=== PATIENT | female | born 1950 | race Caucasian/White ===

== ENCOUNTER 2018-12-12 08:13 | Emergency (ER) | payer MEDICARE ==
[~2018-12-12] VITALS: Ht 165.1 cm; Wt 65.8 kg
--- OUTSIDE RECORDS SUMMARY | 2018-12-12 08:16 | XMS REPORT | Summary of Care ---
Author Organization Unknown Address Unknown Phone Unavailable Encounter Dates Location Diagnoses Discharge Providers Disposition 01/12/2014 [facility] Outpatient Imaging - Home Alma Espinoza [facility] 01/12/[address] Reason for Visit 790.5 - ABN SERUM ENZY Problem List No data available for this section Allergies, Adverse Reactions, Alerts No data available for this section Medications No data available for this section Medications Administered During Your Visit No data available for this section Immunizations No data available for this section
--- OUTSIDE RECORDS SUMMARY | 2018-12-12 08:16 | XMS REPORT | Summary of Care ---
Author Organization Unknown Address Unknown Phone Unavailable Encounter Dates Location Diagnoses Discharge Providers Disposition 01/06/2014 [facility] Outpatient Imaging - Home Alma Espinoza [facility] 01/06/[address] Reason for Visit 793.19 - OT NONSP AB FND Problem List No data available for this section Allergies, Adverse Reactions, Alerts No data available for this section Medications No data available for this section Medications Administered During Your Visit No data available for this section Immunizations No data available for this section
--- OUTSIDE RECORDS SUMMARY | 2018-12-12 08:16 | XMS REPORT | Summary of Care ---
Author Organization Unknown Address Unknown Phone Unavailable Encounter HQ Anar_avi([facility]) [id number] Date(s): 12/12/14 - 12/12/14 [facility] Outpatient Imaging - [address] [address] [place] Discharge Disposition: Home Physician Attending: Fabiana Bruner MD Reason for Visit 793.11 - SOLITARY PULMON Problem List No data available for this section Allergies, Adverse Reactions, Alerts No data available for this section Medications No data available for this section Medications Administered During Your Visit No data available for this section Immunizations No data available for this section
--- OUTSIDE RECORDS SUMMARY | 2018-12-12 08:16 | XMS REPORT | Continuity of Care Document ---
Author Author [facility] Address Unknown Phone Unavailable Problems Problem Status Onset Date Classification Date Reported Comments Source 241.0 - NONTOX UNINODUL Active 01/11/2015 [facility] [place] [facility] 793.11 - SOLITARY PULMON Active 12/07/2014 [facility] [place] 240.9 - GOITER NOS Active 08/25/2012 [facility] [place] Medications Medication Details Route Status Patient Instructions Ordering Provider Order Date Source Allergies, Adverse Reactions, Alerts Substance Category Reaction Severity Reaction type Status Date Reported Comments Source Immunizations Immunization Date Given Site Status Last Updated Comments Source Results Order Name Results Value Reference Range Date Interpretation Comments Source Chest wo contrast CT Chest wo contrast CT CHEST CT CLINICAL HISTORY: Solitary pulmonary nodule. TECHNIQUE: A noncontrast volumetric CT was acquired and displayed in multiplanar reconstructions. DLP is 574 mGy-cm. COMPARISON IMAGIN01/06/2014 CT. FINDINGS: Mediastinum: The nodule in the lower pole of the left lobe of thyroid now appears slightly larger, measuring 2.4 cm in greatest dimension (series 2, image 4). Note that the interval change may be related to differences in CT technique than true interval growth. Visualized lymph nodes are within normal limits for CT size criteria. There is no acute aortic abnormality, pericardial effusion, or mediastinal mass. Upper Abdomen: The low-density lesions in the liver seen on the prior exam are stable when accounting for differences in technique. Lungs: Pleural surfaces are unremarkable. The 4 mm subpleural noncalcified nodule in the RML (series 3, image 35) is stable. No suspicious pulmonary consolidation, interstitial thickening, or other significant nodularity is identified. Bones: Unremarkable. IMPRESSION: 1. Stable punctate right lung nodule. Followup imaging is no longer necessary. 2. Stable liver lesions. 3. Possible slight interval increase in the nodule in the left lobe of the thyroid. Note that this has previously been imaged with sonography (10/27/2012), and FNA was recommended at that time. Repeat sonography should be considered if this patient has not undergone tissue sampling. 12/12/2014 - - Read by: Kentrell Scott MD Dictated Date/time: 12/12/14 15:43 Electronically Signed by: Kentrell Scott MD 12/12/14 15:56 FINAL REPORT JOHANNA Reynolds Abdomen complete US Abdomen complete US ABDOMEN ULTRASOUND CLINICAL HISTORY: Abnormal LFTs COMPARISON IMAGING: Correlation is made with recent CT abdomen of 08/11/2013 FINDINGS: Liver: Measures 14.5 cm in length (normal: 13-17 cm). Echogenicity is unremarkable. 7 mm hyperechoic focus is seen in the right hepatic lobe, likely corresponding to a known hemangioma. A 4 mm punctate echogenic focus in the anterior right hepatic lobe is indeterminate, may also reflect a small hemangioma. Larger hemangiomas visualized on prior CT are not as well seen on this exam. The patient is status post partial left hepatectomy. No suspicious lesion or surface nodularity. Portal vein is patent with hepatopedal flow. Biliary: The gallbladder is surgically absent. There is mild central biliary prominence measuring up to 1.1 cm. This is not significantly changed when compared with the recent CT. No evidence of intraluminal stone. Pancreas: No focal lesion. However, the tail is obscured by overlying bowel gas and unable to be evaluated. Spleen: Measures 8.7 cm in maximal dimension (normal < 13 cm). Punctate calcified granulomas are seen, unchanged compared to prior CT. No focal lesion is seen. Kidneys: Right and left measure 10.6 and 10.2 cm in length, respectively (normal: 9-12 cm). No hydronephrosis, suspicious renal mass, or large shadowing stone. Vascular: Visualized portions of the IVC are patent. No obvious aneurysmal dilatation of the aorta. IMPRESSION: 1. Punctate hyperechoic focus in the right hepatic lobe measuring 7 mm, likely corresponds to known hemangioma. 2. Indeterminate 4 mm echogenic focus in the anterior right hepatic lobe, may also reflect a punctate hemangioma. Alternatively, this may reflect a calcified granuloma which was not well visualized on the previous CT. 3. Mild prominence of the common bile duct may be related to previous cholecystectomy. 4. Stable granulomatous disease of the spleen. 01/12/2014 - - Read by: Lynette Nava Dictated Date/time: 01/12/14 13:17 Electronically Signed by: Lynette Nava MD 01/12/14 13:29 FINAL REPORT EVANGELINA Reynolds Chest w/wo contrast CT Chest w/wo contrast CT CHEST CT CLINICAL HISTORY: Abnormal lung [place] findings. TECHNIQUE: Pre- and post-IV contrast volumetric CT displayed in multiplanar reconstructions. DLP is 767 mGy-cm. COMPARISON IMAGIN08/11/2013 abdomen/pelvis CT and 08/27/2012 sonography. FINDINGS: Mediastinum: A 2.2 cm nodule in the lower pole of the left lobe of thyroid is grossly unchanged since 2011 when allowing for differences in imaging technique. Visualized lymph nodes are within normal limits for CT size criteria. No acute aortic abnormality, pericardial effusion, or mediastinal mass. Upper Abdomen: Surgical changes along the left lobe of the liver are again noted. The low-density lesions in the liver (seen on prior imaging) are stable. Note that they have been previously shown to represent hemangiomas. Remaining visualized segments of the abdominal organs are unremarkable. Lungs: Pleural surfaces are unremarkable. A 4 mm subpleural noncalcified nodule is seen in the RML (series 5, image 35). No suspicious pulmonary consolidation, interstitial thickening, or other significant nodularity is identified. Bones: No suspicious bone lesion is seen. IMPRESSION: 1. Punctate indeterminate right lung nodule. Repeat chest CT in one year is recommended if this patient has risk factors for malignancy. 2. Stable thyroid and liver lesions. 01/06/2014 - - Read by: Kentrell Scott Dictated Date/time: 01/08/14 11:46 Electronically Signed by: Kentrell Scott MD 01/08/14 11:55 FINAL REPORT EVANGELINA Dela Cruza Abdomen w/wo contrast CT Abdomen w/wo contrast CT Exam: CT Scan of the abdomen with and without contrast Reason for Exam: Liver hemangioma Comparison Exam: MRI abdomen 03/05/2004 Technique: Multiple axial images were obtained of the abdomen. 3.75 mm slices were acquired before and after injection of 100 cc Omnipaque 300 IV. 50 cc Omnipaque 300 was also given as oral contrast. Reformatted sagittal and coronal images were obtained. Creatinine is 1.0. Total exam MXN=1384 mGy-cm. Discussion: Visualized portions of the lung bases are clear. The patient states that she is status post partial hepatectomy approximately 12 years ago. Postsurgical changes are seen within the left lobe of the liver. Stable appearing hemangiomas are seen within the liver (series 3, image 112, series 3, image 108, and series 3, image 117). Stable appearing subcentimeter hypodensity seen within the right lobe of the liver (series 3, image 112). Portal venous system is patent. The patient is status post cholecystectomy. No biliary duct dilation. Pancreas, spleen, and adrenal glands are within normal limits. Kidneys are unremarkable. No hydronephrosis or hydroureter. Multiple calcite granulomas seen within the spleen. Otherwise the spleen is unremarkable. No appreciable lymphadenopathy. No dilated loops of bowel or evidence for ventral hernia. No acute bony abnormalities appreciated. No suspicious osteoblastic or osteolytic lesions. No evidence seen for abdominal aortic aneurysm or dissection. Impression: 1. Stable appearing hemangiomas seen within the liver when compared to 2003 abdominal MRI. 08/11/2013 - - Read by: Morris Orellana Dictated Date/time: 08/11/13 11:49 Electronically Signed by: Morris Orellana MD 08/11/13 12:04 FINAL REPORT [facility] [place] Vital Signs Vital Sign Value Date Comments Source Encounters Location Location Details Encounter Type Encounter Number Reason For Visit Attending Provider ADM Date DC Date Status Source OD [id number] 240.9 - GOITER NOS ADEN BRUNER 08/27/2012 Active [facility] [place] [facility] Outpatient Imaging - [place] [facility] [id number] _MAPID:[id number] [facility] 01/06/2014 01/07/2014 [facility] [place] [facility] Outpatient Imaging - [place] [facility] [id number] _MAPID:[id number] [facility] 01/12/2014 01/13/2014 [facility] [place] [facility] Outpatient Imaging - [place] [facility] [id number] Aden Bruner 12/12/2014 12/13/2014 [facility] [place] Procedures Procedure Code Date Perfomer Comments Source
[2018-12-12] MEDS ORDERED: SODIUM CHLORIDE 0.9% 1000ML 1,000 ML IV STA (08:28)
[2018-12-12 08:48] LABS: BASOPHILS % 0.3 % (0.0-1.0); EOSINOPHILS # (AUTO) 0.1 (0.0-0.4); EOSINOPHILS % 1.9 % (0.0-6.0); HEMATOCRIT 38.1 % (34.2-44.1); HEMOGLOBIN 13.4 g/dL (12.0-16.0); LYMPHOCYTES % 32.5 % (18.0-39.1); MEAN CORPUSCULAR HEMOGLOBIN 30.7 pg (28-32); MEAN CORPUSCULAR HGB CONC 35.2 g/dL (31-35); MEAN CORPUSCULAR VOLUME 87.4 fL (81-99); MONOCYTES # (AUTO) 0.4 (0.2-0.8); MONOCYTES % 6.4 % (4.4-11.3); NEUTROPHILS # (AUTO) 3.7 (2.1-6.9); NEUTROPHILS % 58.6 % (38.7-80.0); PLATELET COUNT 289 x10e3/uL (140-360); RED BLOOD COUNT 4.36 x10e6/uL (3.6-5.1); RED CELL DISTRIBUTION WIDTH 13.4 % (11.7-14.4)
[2018-12-12] MEDS ORDERED: ONDANSETRON HCL INJ 2MG/ML 2ML 2 MG/ML VIAL IV ONE ×2 (09:00→10:30)
[2018-12-12] MEDS ORDERED: MORPHINE SULFATE INJ 4 MG/ML INJ 1ML IV ONE ×2 (09:00→10:30)
[2018-12-12 09:07] LABS: ALANINE AMINOTRANSFERASE 11 IU/L (0-55); ALBUMIN 3.8 g/dL (3.5-5.0); ALBUMIN/GLOBULIN RATIO 1.4 (0.8-2.0); ALKALINE PHOSPHATASE 80 IU/L (40-150); ANION GAP 16.6 mmol/L (8-16); BLOOD UREA NITROGEN 13 mg/dL (7-26); BUN/CREATININE RATIO 16 (6-25); CALCIUM 9.3 mg/dL (8.4-10.2); CARBON DIOXIDE 24 mmol/L (22-29); CHLORIDE 105 mmol/L (98-107); CREATINE KINASE 82 IU/L (29-168); CREATININE, SERUM 0.82 mg/dL (0.57-1.11); EST GLOMERULAR FILTRATION RATE > 60 ML/MIN (60-); GLUCOSE 130 mg/dL (74-118); LIPASE 7 U/L (8-78); POTASSIUM 3.6 mmol/L (3.5-5.1); SODIUM 142 mmol/L (136-145)
--- NOTE | 2018-12-12 09:23 | Diagnostic Imaging Report ---
EXAM: XR CHEST 1 VIEW DATE: 12/12/2018 8:28 AM INDICATION: Pain COMPARISON: None FINDINGS: Lines and Tubes: None Heart and Mediastinum: No acute cardiomediastinal findings. Lungs and Pleura: No significant pleural effusion, pneumothorax, or focal consolidation. Probable basilar atelectasis. Bones and Soft Tissues: No acute findings. IMPRESSION: 1. No acute cardiopulmonary findings. Signed by: Dr. Enzo Walter MD on 12/12/2018 9:20 AM
[2018-12-12 09:25] LABS: CLARITY,URINE CLEAR (CLEAR); COLOR,URINE YELLOW (YELLOW); LEUKOCYTE ESTERASE ,URINE 1+ (NEGATIVE); NITRITE,URINE NEGATIVE (NEGATIVE); PROTEIN,URINE DIPSTICK NEGATIVE (NEGATIVE)
[2018-12-12 09:26] LABS: BILIRUBIN,URINE NEGATIVE (NEGATIVE); KETONES,URINE NEGATIVE (NEGATIVE); URINE UROBILINOGEN 0.2 mg/dL (0.2 - 1)
--- NOTE | 2018-12-12 09:26 | Diagnostic Imaging Report ---
EXAM: CT Abdomen and Pelvis WITHOUT contrast INDICATION: Pain COMPARISON: None. TECHNIQUE: Abdomen and Pelvis was scanned utilizing a multidetector helical scanner without the use of IV contrast. Coronal and sagittal reformations were obtained. IV CONTRAST: None COMPLICATIONS: None RADIATION DOSE: Total DLP: 239 mGy*cm Estimated effective dose: (DLP x 0.015 x size factor) mSv CTDIvol has been reviewed. It is below the limits set by the Radiation Protocol Committee (RPC). Appropriate CT dose reduction techniques were utilized. FINDINGS: Abdomen: Lung Bases: No acute findings. Solid Organs: Cholecystectomy clips. Splenic granulomata. Within limitations of nonenhanced exam, liver, adrenals, kidneys, and pancreas are unremarkable. No hydronephrosis or renal calculi. No definite ureteral calculus; however, what appears to be vascular calcifications are in close proximity to distal ureter. Upper GI Tract: No small bowel obstructive changes. Vascularity: Mild aortic vascular calcifications with no aneurysm. Lymph Nodes: No suspicious adenopathy. Other: None. Pelvis: Bladder: Decompressed, limiting evaluation. Other: Uterus absent. Colon: No acute colonic findings. Bones: Degenerative changes spine, particularly L2-3 endplates. IMPRESSION: 1. No definite acute findings within the abdomen or pelvis. See above for full details. Signed by: Dr. Enzo aWlter MD on 12/12/2018 9:23 AM
[2018-12-12 09:28] LABS: BACTERIA,URINE MANY /HPF; EPITHELIAL CELLS,URINE MODERATE /LPF; WBC,URINE (MAN) 0-5 /HPF (0-5)
[2018-12-12] MEDS ORDERED: KETOROLAC TROMETHAMINE 60 MG/2 ML VIAL IM ONE (09:30)
[2018-12-12] MEDS ORDERED: KETOROLAC TROMETHAMINE 30 MG/ML VIAL IV ONE (09:30)
[2018-12-12] MEDS ORDERED: CEFTRIAXONE SOD 1 GM/NS 50 ML 50 ML IV ONE (09:45)
[2018-12-12 10:24] VITALS: BP 158/74
[2018-12-12] MEDS ORDERED: KEFLEX500 MG PO (10:24)
[2018-12-12] MEDS ORDERED: ULTRAM50 MG PO (10:24)
== END 2018-12-12 10:46 | disposition home or self-care (01) ==
LOC: ER 08:13
DX: R10.31 Right lower quadrant pain (principal); R10.11 Right upper quadrant pain; M54.5 Low back pain; N30.90 Cystitis, unspecified without hematuria
CPT/HCPCS: 36415; 71045; 74176; 80053; 81001; 82550; 82553; 83690; 84484; 85025; 99284; J0696; J1885; J2270; J2405; J7030

== ENCOUNTER 2020-07-12 19:02 | Emergency (ER) | payer MEDICARE ==
[~2020-07-12] VITALS: Ht 160 cm; Wt 64.4 kg
[~2020-07-12 19:02] MED LIST: KEFLEX500 MG PO; ULTRAM50 MG PO
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
[2020-07-12] MEDS ORDERED: ACETAMINOPHEN 325 MG TAB PO STA (19:45)
--- OUTSIDE RECORDS SUMMARY | 2020-07-12 20:03 | XMS REPORT | Continuity of Care Document ---
Author Author [facility] Celeste [employer] Address Unknown Phone Unavailable Care Team Providers Care [employer] Worker Name Role Phone [employer] Unavailable Un available Problems Problem Status Onset Date Classification Date Reported Comments Source 241.0 - NONTOX UNINODUL Active 01/11/2015 [facility] [place] 793.11 - SOLITARY PULMON Active 12/07/2014 [facility] [place] 240.9 - GOITER NOS Active 08/25/2012 [facility] [place] Depression Active 01/04/2014 [facility] Esophageal Reflux Active 01/04/2014 [facility] Hypertension Active 01/04/2014 [facility] Hyperlipidemia Active 01/04/2014 [facility] Hypothyroidism Active 01/04/2014 [facility] Nontoxic Solitary Thyroid Nodule Active 01/04/2014 [facility] Solitary Thyroid Nodule Active 12/10/2012 [facility] CXR Lungs Multiple Pulmonary Nodules Active 01/04/2014 [facility] Abnormal Hepatic Enzyme Active 01/04/2014 [facility] Medications Medication Details Route Status Patient Instructions Ordering Provider Order Date Source Levothyroxine Sodium 50 MCG Oral Tablet ; Start Date: 12/21/2013; End Date: (Active) Active 12/21/2013 [facility] AmLODIPine Besylate 5 MG Oral Tablet ; Start Date: 11/23/2013; End Date: 06/19/2014 (Active) Active 11/23/2013 [facility] Venlafaxine HCl ER 150 MG Oral Capsule E xtended Release 24 Hour ; Start Date: 10/07/2013; End Date: 11/1899 (Active) Active 10/07/2013 [facility] Atorvastatin Calcium 10 MG Oral Tablet ; Start Date: 07/15/2013; End Date: (Active) Active 07/15/2013 [facility] Levothyroxine Sodium 50 MCG Oral Tablet ; Start Date: 09/15/2012 (Active) Active 09/15/2012 [facility] Diovan HCT 80-12.5 MG Oral Tablet ; Start Date: 09/14/2012 (Active) Active 09/14/2012 [facility] Vytorin 10-10 MG Oral Tablet ; Start Date: 09/14/2012; End Date: (Active) Active 09/14/2012 [facility] Levothyroxine Sodium 75 MCG Oral Tablet ; Start Date: 09/14/2012; End Date: (Active) Active 09/14/2012 [facility] TraZODone HCl 150 MG Oral Tablet ; Start Date: 09/14/2012; End Date: (Active) Active 09/14/2012 [facility] Effexor XR 150 MG Oral Capsule Extended Release 24 Fior r ; Start Date: 09/14/2012 (Active) Active 09/14/2012 [facility] NexIUM 40 MG Oral Capsule Delayed Release ; Start Date: 09/14/2012 (Active) Active 09/14/2012 [facility] Fish Oil 1000 MG Oral Capsule ; Start Date: 09/14/2012 (Active) Active 09/14/2012 [facility] Calcium 500 + D 500-125 MG-UNIT Oral Tablet ; Start Date: 09/14/2012 (Active) Active 09/14/2012 [facility] Valsartan-Hydrochlorothiazide 80-12.5 MG Oral Tablet ; Start Date: 09/14/2012; End Date: (Active) Active 09/14/2012 [facility] AmLODIPine Besylate 5 MG Oral Tablet (Active) Active [facility] Protonix 40 MG Oral Tablet Delayed Release (Active) Active [facility] Magnesium CAPS (Active) Active [facility] Metoclopramide HCl 10 MG Oral Tablet (Active) Active [facility] Vicodin TABS (Active) Active [facility] Allergies, Adverse Reactions, Alerts Substance Category Reaction Severity Reaction type Status Date Reported Comments Source Codeine Sulfate TABS drug elisabeth rgy drug aller gy Active [facility] Immunizations No Data Provided for This Section Results No Data Provided for This Section Pathology Reports No Data Provided for This Section Diagnostic Reports Report Value Date Source Chest wo contrast CT CHEST CT CLINICAL [...] IMPRESSION: 1. Stable punctate right lung nodule. Fo llowup imaging is no longer necessary. 2. Stable liver lesions. 3. Possible slight interval increase in the nodule in the left lobe of the thyroid. Note that this has previously been imaged with sonography (10/27/2012), and FNA was recommended at that time. Repeat sonography should be considered if this patient has not undergone tissue sampling. 12/12/2014 [facility] Abdomen complete US ABDOMEN UL TRASOUND CLINICAL HISTORY: Abnormal LFTs COMPARISON IMAGING: Correlation [...] IMPRESSION: 1. Punctate hyperechoic focus in the rig ht hepatic lobe measuring 7 mm, likely corresponds to known hemangioma. 2. Indeterminate 4 mm echogenic focus in the anterior right hepatic lobe, may also reflect a punctate hemangioma. Alternatively, this may reflect a calcified granuloma which was not well visualized on the previous CT. 3. Mild prominence of the common bile du ct may be related to previous cholecystectomy. 4. Stable granulomatous disease of the s pleen. 01/12/2014 [facility] [place] Chest w/wo contrast CT CHEST C T CLINICAL HISTORY: Abnormal lung [place] findings. TECHNIQUE: Pre- and post-IV contrast volumetric CT displayed in multiplanar reconstructions. DLP is 767 mGy-cm. COMPARISON IMAGIN08/11/2013 abdomen/pelvis CT and 012 sonography. FINDINGS: Mediastinum: A 2.2 cm nodule [...] seen. IMPRESSION: 1. Punctate indeterminate right lung nod ule. Repeat chest CT in one year is recommended if this patient has risk factors for malignancy. 2. Stable thyroid and liver lesions. 01/06/2014 [facility] [place] Abdomen w/wo contrast CT Exam: CT Scan [...] were obtained. Creatinine is 1.0. Total exam DLP = 2056 mGy-cm. Discussion: Visualized portions of the lung [...] dissection. Impression: 1. Stable appearing hemangiomas seen wi thin the liver when compared to 2004 abdominal MRI. 08/11/2013 [facility] Consultation Notes No Data Provided for This Section Discharge Summaries No Data Provided for This Section History and Physicals No Data Provided for This Section Vital Signs No Data Provided for This Section Encounters Location Location Details Encounter Type Encounter Number Reason For Visit Attending Provider ADM Date DC Date Status Source OD [id number] 240.9 - GOITER NOS ADEN KIMBALL 08/27/2012 Active [facility] [id number] 12/08/2012 12/08/2012 [facility] [id number] 12/10/2012 12/10/2012 [facility] AUDIT [id number] 07/15/2013 07/15/2013 [facility] AUDIT [id number] 10/07/2013 10/07/2013 [facility] AUDIT [id number] 11/23/2013 11/23/2013 [facility] AUDIT [id number] 12/13/2013 12/13/2013 [facility] AUDIT [id number] 12/22/2013 12/22/2013 [facility] Petros ALVARADO leeanna: ADEN KIMBALL, Status: [place], Time: 8:45 AM [id number] 12/22/19 14 11/23/2013 [facility] AUDIT [id number] 12/23/2013 12/23/2013 [facility] AUDIT [id number] 01/04/2014 01/04/2014 [facility] [place] [facility] [id number] _MAPID:[id number] [place] 01/06/2014 01/07/2014 [facility] [place] [facility] [place] [facility] [id number] _MAPID:[id number] [place] 01/12/2014 01/13/2014 [facility] [place] [facility] [place] [facility] [id number] 04 Aden Goodine 12/12/2014 12/13/2014 [facility] [place] Procedures No Data Provided for This Section Assessment and Plan No Data Provided for This Section Plan of Care Plan of Care Date Source CT Chest w contrast 35009 01/04/2014 Routine 01/04/[address] [facility] [address] Chest w/wo contrast 51256 12/21/2013 Routine 12/23/[address] [facility] [address] Chest w/wo contrast 21067 12/21/2013 Routine 12/22/2013 [facility] Social History Social History Date Source Marital History - Currently (Active) Never A Smoker (Active) Never Drank Alcohol (Active) Occupation: Retired (Active) 01/04/2014 [facility] Family History Value Date S ource Family history of Diabetes Mellitus (V18 .0); (Active) Family history of Hypertension (V17.49); (Active) Family history of Nontoxic Nodular Goiter (Active) 01/04/2014 [facility] Family history of Diabetes Mellitus (V18 .0); (Active) Family history of Hypertension (V17.49); (Active) Family history of Nontoxic Nodular Goiter (Active) 12/23/2013 [facility] Family history of Diabetes Mellitus (V18 .0); (Active) Family history of Hypertension (V17.49); (Active) Family history of Nontoxic Nodular Goiter (Active) 12/22/2013 [facility] Family history of Diabetes Mellitus (V18 .0); (Active) Family history of Hypertension (V17.49); (Active) Family history of Nontoxic Nodular Goiter (Active) 12/13/2013 [facility] Family history of Diabetes Mellitus (V18 .0); (Active) Family history of Hypertension (V17.49); (Active) Family history of Nontoxic Nodular Goiter (Active) 11/23/2013 [facility] Family history of Diabetes Mellitus (V18 .0); (Active) Family history of Hypertension (V17.49); (Active) Family history of Nontoxic Nodular Goiter (Active) 10/07/2013 [facility] Family history of Diabetes Mellitus (V18 .0); (Active) Family history of Hypertension (V17.49); (Active) Family history of Nontoxic Nodular Goiter (Active) 07/15/2013 [facility] Family history of Diabetes Mellitus (V18 .0); (Active) Family history of Hypertension (V17.49); (Active) Family history of Nontoxic Nodular Goiter (Active) 12/10/2012 [facility] Family history of Diabetes Mellitus (V18 .0); (Active) Family history of Hypertension (V17.49); (Active) Family history of Nontoxic Nodular Goiter (Active) 12/08/2012 [facility] Advance Directives Order Name Results Value Date Source Advance Directives Advance Dir ectives No Advance Directives available. 01/04/2014 [facility] Advance Directives Advance Dir ectives No Advance Directives available. 12/23/2013 [facility] Advance Directives Advance Dir ectives No Advance Directives available. 12/22/2013 [facility] Advance Directives Advance Dir ectives No Advance Directives available. 12/13/2013 [facility] Advance Directives Advance Dir ectives No Advance Directives available. 11/23/2013 [facility] Advance Directives Advance Dir ectives No Advance Directives available. 10/07/2013 [facility] Advance Directives Advance Dir ectives No Advance Directives available. 07/15/2013 [facility] Advance Directives Advance Dir ectives No Advance Directives available. 12/10/2012 [facility] Advance Directives Advance Dir ectives No Advance Directives available. 12/08/2012 [facility] Functional Status No Data Provided for This Section
--- OUTSIDE RECORDS SUMMARY | 2020-07-12 20:03 | XMS REPORT | Continuity of Care Document ---
Author Author [facility] t Organization [facility] Address [address] [place] [address] Phone Unavailable Care Team Providers Care Business Solutions Director Name Role Phone Venita BRUNER PCP Stephany ANTON Attphys Unavailable Brigitte Bruner Attphys Alma Espinoza Attphys Payers Payer Name Policy Type Policy Number Effective Date Expiration Date Stephany Bender Medicare Replacement [id number] 2018 00:00:00 [facility] Problems Condition Name Condition Details Condition Category Status Onset Date Resolution Date Last Treatment Date Treating Clinician Comments Source 241.0 - NONTOX UNINODUL 241. 0 - NONTOX UNINODUL Active 01/11/2015 [facility] [place] Diagnosis Active 2015-01-11 00:01:00 2015-04-02 15:48:00 Maisha Villareal 793.11 - SOLITARY PULMON 793. 11 - SOLITARY PULMON Active 12/07/2014 [facility] [place] Diagnosis Active 2014-12-07 00:01:00 2016-03-11 13:04:00 Maisha Villareal 240.9 - GOITER NOS 240. 9 - GOITER NOS Active 08/25/2012 [facility] [place] Diagnosis Active 2012-08-25 00:01:00 2012-08-27 12:58:00 Maisha Villareal Depression Depr ession Active 01/04/2014 [facility] Problem Active 2014-01-04 21:26:05 Maisha Villareal Esophageal Reflux Esop hageal Reflux Active 01/04/2014 [facility] Problem Active 2014-01-04 21:26:05 M hira [place] Hypertension Hype rtension Active 01/04/2014 [facility] Problem Active 2014-01-04 21:26:05 Van miriam [place] Hyperlipidemia Hype rlipidemia Active 01/04/2014 [facility] Problem Active 2014-01-04 21:26:05 M hira [place] Hypothyroidism Hypo thyroidism Active 01/04/2014 [facility] Active 2014-01-04 21:26:05 [facility] [place] 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 01/04/2014 [facility] Problem Active 2014-01-04 21:26:05 [facility] CXR Lungs Multiple Pulmonary Nodules CXR Lungs Multiple Pulmonary Nodules Active 01/04/2014 [facility] Problem Active 2014-01-04 21:26:05 [facility] Abnormal Hepatic Enzyme Abno rmal Hepatic Enzyme Active 01/04/2014 [facility] Problem Active 2014-01-04 21:26: 05 [facility] Allergies, Adverse Reactions, Alerts Allergy Name Allergy Type Status Severity Reaction(s) Onset Date Inacti ve Date Treating Clinician Comments Source Codeine Sulfate TABS Codeine Sulfate TABS Active [facility] Family History Family Member Diagnosis Comments Start Date Stop Date Source Unknown Family Member Family History 2012-12-08 12:45:11 2 12:45:11 [facility] Social History Social Habit Start Date Stop Date Quantity Comments Source Social History 2014-01-04 21:26:05 2014-01-04 21:26:05 [facility] Medications Ordered Medication Name Filled Medication Name Start Date Stop Da te Current Medication? Ordering Clinician Indication Dosage Frequency Signature (SIG) Comments Components Source Cephalexin Monohydrate (Keflex) 500 Mg Capsule Cephale travis Monohydrate (Keflex) 500 Mg Capsule 2018-12-12 00:00:00 Yes Rayshawn Anton Md 50 0 Every 6 Hours [facility] Tramadol Hcl (Ultram) 50 Mg Tablet Tramadol Hcl (Ultram) 50 Mg Tablet 2018-12-12 00:00:00 Yes Rayshawn Anton Md 50 Every 6 Hours as needed for Pain [facility] Protonix 40 MG Oral Tablet Delayed Release 2014-01-04 21:26:05 Yes (Active) [facility] Magnesium CAPS 2014-01-04 21:26:05 Yes (Act lisa) Maisha Villareal Metoclopramide HCl 10 MG Oral Tablet 2014-01-04 21:26:05 Ye s (Active) Maisha Villareal Vicodin TABS 2014-01-04 21:26:05 Yes (Activ e) Maisha Villareal Levothyroxine Sodium 50 MCG Oral Tablet 2013-12-21 06:00:00 Yes ; Start Date: 12/21/2013; End Date: (Active) Maisha Villareal AmLODIPine Besylate 5 MG Oral Tablet 2013-11-23 06:00:00 Ye s ; Start Date: 11/23/2013; End Date: 06/19/2014 (Active) Maisha Villareal AmLODIPine Besylate 5 MG Oral Tablet 2013-10-07 15:30:09 Ye s (Active) Maisha Villareal Venlafaxine HCl ER 150 MG Oral Capsule Extended Release 24 H our 2013-10-07 06:00:00 Yes ; Start Date: 3; End Date: (Active) Maisha Villareal Atorvastatin Calcium 10 MG Oral Tablet 2013-07-15 05:00:00 Yes ; Start Date: 07/15/2013; End Date: (Active) Maisha Villareal Levothyroxine Sodium 50 MCG Oral Tablet 2012-09-15 06:00:00 Yes ; Start Date: 09/15/2012 (Active) Maisha Villareal Diovan HCT 80-12.5 MG Oral Tablet 2012-09-14 06:00:00 Yes ; Start Date: 09/14/2012 (Active) Maisha Radford nn Vytorin 10-10 MG Oral Tablet 2012-09-14 06:00:00 Yes ; Start Date: 09/14/2012; End Date: (Active) Maisha Villareal Levothyroxine Sodium 75 MCG Oral Tablet 2012-09-14 06:00:00 Yes ; Start Date: 09/14/2012; End Date: (Active) Maisha Villareal TraZODone HCl 150 MG Oral Tablet 2012-09-14 06:00:00 Yes ; Start Date: 09/14/2012; End Date: (Active) Maisha Villareal Effexor XR 150 MG Oral Capsule Extended Release 24 Hour 2012-09-14 06:00:00 Yes ; Start Date: 09/14/2012 (Active) Maisha Larryann NexIUM 40 MG Oral Capsule Delayed Release 2012-09-14 06:00:00 Yes ; Start Date: 09/14/2012 (Active) Maisha Larryann Fish Oil 1000 MG Oral Capsule 2012-09-14 06:00:00 Yes ; Start Date: 09/14/2012 (Active) Maisha Larryann Calcium 500 + D 500-125 MG-UNIT Oral Tablet 2012-09-14 06:00:00 Yes ; Start Date: 09/14/2012 (Active) Yulianaamy jackson Mono Valsartan-Hydrochlorothiazide 80-12.5 MG Oral Tablet 2 06:00:00 Yes ; Start Date: 09/14/2012; End Date: 11/1899 (Active) Maisha Mono Procedures Procedure Date / Time Performed Performing Clinician [facility] crystal CT of abdomen and pelvis without contrast 2018-12-12 00:00:00 RAYSHAWN MC [facility] Plan of Care Planned Activity Planned Date Details Comments Source Future Scheduled Test 2014-01-04 21:26:05 Plan of Care [code = 1877 6-5] [facility] Future Scheduled Test 2013-12-23 20:31:13 Plan of Care [code = 1877 6-5] [facility] Future Scheduled Test 2013-12-22 14:30:44 Plan of Care [code = 1877 6-5] [facility] Encounters Start Date/Time End Date/Time Encounter Type Admission Type Attendi [facility] Care Department Encounter ID Source 2018-12-12 08:13:00 2018-12-12 10:46:00 Departed Emergency Room 1 RAYSHAWN ANTON [facility] [id number] [facility] 2014-12-12 09:47:00 2014-12-12 23:59:00 Outpatient Aden Bruner [id number] 2014-01-12 11:33:00 2014-01-12 23:59:00 Outpatient Alma Espinoza [id number] 2014-01-06 14:36:00 2014-01-06 23:59:00 Outpatient Alma Espinoza [id number] 2014-01-04 15:26:06 2014-01-04 15:26:05 Outpatient IE IE [id number] 2013-12-23 14:31:13 2013-12-23 14:31:13 Outpatient MHIE IE [id number] 2013-12-22 08:30:44 2013-12-22 08:30:44 Outpatient [facility] IE [id number] 2013-12-13 16:50:38 2013-12-13 16:50:37 Outpatient [facility] IE [id number] 2013-11-23 13:46:15 2013-11-23 13:46:14 Outpatient [facility] IE [id number] 2013-10-07 09:30:09 2013-10-07 09:30:09 Outpatient [facility] IE [id number] 2013-07-15 11:15:43 2013-07-15 11:15:43 Outpatient IE IE [id number] 2012-12-10 16:48:25 2012-12-10 16:48:07 Outpatient IE IE [id number] 2012-12-08 06:45:27 2012-12-08 06:45:11 Outpatient IE IE [id number] Results Test Description Test Time Test Comments Results Result Comments Source Urine WBC 2018-12-12 09:28:00 Test Item Urine WBC (test code = 5821-4) 0-5 0-5 [facility] [id number] 09:28:00* Test Item Value Reference Range Interpretation Comments Urine RBC (test code = 24792-1) NONE 0-5 [facility] Jqxdjeid0420-12-21 09:28:00* Test Item Value Reference Range Interpretation Comments Urine Bacteria (test code = 76127-7) MANY NONE H [facility] Epithelial [id number] 09:28:00 * Test Item Value Reference Range Interpretation Comments Urine Epithelial Cells (test code = 63451-2) MODERATE NONE [facility] Rbiol3982-17-39 09:26:00* Test Item Value Reference Range Interpretation Comments Urine Color (test code = 5778-6) YELLOW YELLOW [facility] Otflele7179-72-06 09:26:00* Test Item Value Reference Range Interpretation Comments Urine Clarity (test code = 56285-4) CLEAR CLEAR [facility] Specific Rpzqrkh0323-49-41 09:26:00 * Test Item Value Reference Range Interpretation Comments Urine Specific [place] (test code = 5811-5) 1.020 1.010-1.02 5 [facility] [id number] 09:26:00* Test Item Value Reference Range Interpretation Comments Urine pH (test code = 82262-8) 6.5 5-7 [facility] Leukocyte Tfooxqlt8054-30-74 09:26:00* Test Item Value Reference Range Interpretation Comments Urine Leukocyte Esterase (test code = 5799-2) 1+ NEGATIVE H [facility] Suayqft6499-03-66 09:26:00* Test Item Value Reference Range Interpretation Comments Urine Nitrite (test code = 68420-2) NEGATIVE NEGATIVE [facility] Nuouyfr1548-22-48 09:26:00* Test Item Value Reference Range Interpretation Comments Urine Protein (test code = 5804-0) NEGATIVE NEGATIVE [facility] Glucose (UA)2018-12-12 09:26:00* Test Item Value Reference Range Interpretation Comments Urine Glucose (UA) (test code = 2349-9) NEGATIVE NEGATIVE [facility] Qghztpx8959-54-16 09:26:00* Test Item Value Reference Range Interpretation Comments Urine Ketones (test code = 83326-3) NEGATIVE NEGATIVE [facility] Oesyxyafmruu2899-47-36 09:26:00* Test Item Value Reference Range Interpretation Comments Urine Urobilinogen (test code = 28031-8) 0.2 0.2-1 [facility] Susxujyvt9073-51-33 09:26:00* Test Item Value Reference Range Interpretation Comments Urine Bilirubin (test code = 1978-6) NEGATIVE NEGATIVE [facility] Ktfgw8754-75-17 09:26:00* Test Item Value Reference Range Interpretation Comments Urine Blood (test code = 75595-3) NEGATIVE NEGATIVE [facility]/PELVIS [id number] 09:20:00 [facility] [address] [address] Patient Name: AMINAH GUERRERO MR #: [id number] : 1950 Age/Sex: 68/F Req #: [id number] Adm Physician: Ordered by: RAYSHAWN ANTON MD Report #: [id number] Location: ER Room/Bed: Procedure: [id number] CT/ CT ABDOMEN/PELVIS WO Exam Date: Exam Time: REPORT STATUS: Signed EXAM: CT Abdomen and Pelvis WITHOUT contrast INDICATION: Pain COMPARISON: None. TECHNIQUE: Abdomen and Pelvis was scanned utilizing a multidetector helical scanner without the use of IV contrast. Coronal and sagittal reformations were obtained. IV CONTRAST: None COMPLICATIONS: None RADIATION DOSE: Total DLP: 239 mGy*cm Estimated effect lisa dose: (DLP x 0.015 x size factor) mSv CTDIvol has been reviewed. It i s below the limits set by the Radiation Protocol Committee (RPC). Appropriate CT dose reduction techniques were utilized. FINDINGS: Abdomen: Lung Bases: No acute findings. Solid Organs: Cholecystectomy clips. S plenic granulomata. Within limitations of nonenhanced exam, liver, adrenals, k idneys, and pancreas are unremarkable. No hydronephrosis or renal calculi. No definite ureteral calculus; however, what appears to be vascular calcification s are in close proximity to distal ureter. Upper GI Tract: No small bowel o bstructive changes. Vascularity: Mild aortic vascular calcifications with n o aneurysm. Lymph Nodes: No suspicious adenopathy. Other: None. Pelvis: Bladder: Decompressed, limiting evaluation. Other: Uterus absent. Colon: No acute colonic findings. Bones: Degenerative changes spine, particularly L2-3 endplates. IMPRESSION: 1. No definite acute findings within the abdomen or pelvis. See above for full details. Signed by: Dr. Alma Delia Walter MD on 12/12/2018 9:23 AM Dictated By: ALMA DELIA WALTER MD 2 Transcribed By: LINDA on 12/12/18922 COPY TO: RAYSHAWN ANTON MD CHEST SINGLE (PORTABLE)2018-12-12 09:19:[address] [address] Patient Name: AMINAH GUERRERO MR #: [id number] : 1950 Age/Sex: 68/F Req #: [id number] Adm Physician: Ordered by: RAYSHAWN ANTON MD Report #: [id number] Location: ER Room/Bed: Procedure: [id number] DX/ CHEST SINGLE (PORTABLE) Exam Date: Exam Time: REPORT STATUS: Signed EXAM: XR CHEST 1 VIEW DATE: 12/12/2018 8:28 AM INDICATION: Pain COMPARISON: None FINDINGS: Lines and Tubes: None Heart and Mediastinum: No acute cardiomediastinal findings. Lungs and Pleura: No significant pleural effusi on, pneumothorax, or focal consolidation. Probable basilar atelectasis. B ones and Soft Tissues: No acute findings. IMPRESSION: 1. No acute cardi opulmonary findings. Signed by: Dr. Alma Delia Walter MD on 12/12/2018 9:20 AM Dictated By: ALMA DELIA WALTER MD 9 Transcribed By: LINDA on 12/12/18919 COPY TO: RAYSHAWN HERNANDEZ MD Creatine Kinase [id number] 09:16:00* Test Item Value Reference Range Interpretation Comments Creatine Kinase MB (test code = 25010-0) 0.60 0-5.0 [facility] HospitalTroponin [id number] 09:16:00* Test Item Value Reference Range Interpretation Comments Troponin I (test code = VXB6660) < 0.001 0-0.300 [facility] Znxkc6102-47-99 09:09:00* Test Item Value Reference Range Interpretation Comments Sodium Level (test code = 2951-2) 142 136-145 [facility] HospitalPotassium Gymyx4461-07-86 09:09:00* Test Item Value Reference Range Interpretation Comments Potassium Level (test code = 2823-3) 3.6 3.5-5.1 [facility] HospitalChloride Qbmgk0087-89-77 09:09:00* Test Item Value Reference Range Interpretation Comments Chloride Level (test code = 2075-0) 105 98-107 [facility] HospitalCarbon Dioxide Milek0382-90-94 09:09:00* Test Item Value Reference Range Interpretation Comments Carbon Dioxide Level (test code = 2028-9) 24 22-29 [facility] HospitalAnion Ibm7760-91-18 09:09:00* Test Item Value Reference Range Interpretation Comments Anion Gap (test code = 50258-2) 16.6 8-16 H [facility] HospitalBlood Urea Thnqfmqp1712-66-00 09:09:00* Test Item Value Reference Range Interpretation Comments Blood Urea Nitrogen (test code = 3094-0) 13 7-26 [facility] HospitalCreatinine2019-02-03 09:09:00* Test Item Value Reference Range Interpretation Comments Creatinine (test code = 2160-0) 0.82 0.57-1.11 [facility] HospitalBUN/Creatinine Aawng0678-96-91 09:09:00* Test Item Value Reference Range Interpretation Comments BUN/Creatinine Ratio (test code = 3097-3) 16 6-25 [facility] HospitalEstimat Glomerular Filtration Rate 2018-12-12 09:09:00* Test Item Value Reference Range Interpretation Comments Estimat Glomerular Filtration Rate (test code = 403610426) > 60 >60 Ranges were taken from the National Kidney Disease Education Program and the [facility] Foundation literature.Reference ranges:60 or greater: Githla70-47 ( for 3 consecutive months): Chronic kidney disease 15 or less: Kidney failureMemorial Hermann Pearland HospitalGlucose Tlchj8426-47-77 09:09:00* Test Item Value Reference Range Interpretation Comments Glucose Level (test code = VPA5988) 130 74-118 H [facility] HospitalCalcium Rkbxb8994-47-95 09:09:00* Test Item Value Reference Range Interpretation Comments Calcium Level (test code = 95585-0) 9.3 8.4-10.2 [facility] HospitalTotal Mgpsqwkiq7308-03-07 09:09:00* Test Item Value Reference Range Interpretation Comments Total Bilirubin (test code = 1975-2) 0.3 0.2-1.2 [facility] HospitalAspartate Amino Transf (AST/SGOT) 2018-12-12 09:09:00* Test Item Value Reference Range Interpretation Comments Aspartate Amino Transf (AST/SGOT) (test code = Aspartate Amino Transf (AST/SGOT)) 15 5-34 [facility] HospitalAlanine Aminotransferase (ALT/SGPT) 2018-12-12 09:09:00* Test Item Value Reference Range Interpretation Comments Alanine Aminotransferase (ALT/SGPT) (test code = 1742-6) 11 0-55 [facility] HospitalTotal Nghkvud1796-76-99 09:09:00* Test Item Value Reference Range Interpretation Comments Total Protein (test code = 2885-2) 6.6 6.5-8.1 [facility] HospitalAlbumin2019-02-03 09:09:00* Test Item Value Reference Range Interpretation Comments Albumin (test code = 1751-7) 3.8 3.5-5.0 [facility] HospitalGlobulin2019-02-03 09:09:00* Test Item Value Reference Range Interpretation Comments Globulin (test code = 44229-5) 2.8 2.3-3.5 [facility] HospitalAlbumin/Globulin Yrbyr3957-85-37 09:09:00 * Test Item Value Reference Range Interpretation Comments Albumin/Globulin Ratio (test code = 1759-0) 1.4 0.8-2.0 [facility] HospitalAlkaline Dbmoiaesoqg4051-47-27 09:09:00* Test Item Value Reference Range Interpretation Comments Alkaline Phosphatase (test code = 6768-6) 80 40-150 [facility] HospitalCreatine Uykpiv8250-82-56 09:09:00* Test Item Value Reference Range Interpretation Comments Creatine Kinase (test code = 2157-6) 82 29-168 [facility] HospitalLipase2019-02-03 09:09:00* Test Item Value Reference Range Interpretation Comments Lipase (test code = 3040-3) 7 8-78 L [facility] HospitalWhite Blood Qecfp8074-33-37 08:49:00* Test Item Value Reference Range Interpretation Comments White Blood Count (test code = 6690-2) 6.28 4.8-10.8 [facility] HospitalRed Blood Umajc7455-19-29 08:49:00* Test Item Value Reference Range Interpretation Comments Red Blood Count (test code = 789-8) 4.36 3.6-5.1 [facility] HospitalHemoglobin2019-02-03 08:49:00* Test Item Value Reference Range Interpretation Comments Hemoglobin (test code = 11758-7) 13.4 12.0-16.0 [facility] HospitalHematocrit2019-02-03 08:49:00* Test Item Value Reference Range Interpretation Comments Hematocrit (test code = 4544-3) 38.1 34.2-44.1 [facility] HospitalMean Corpuscular Uwfppu7215-31-67 08:49:00* Test Item Value Reference Range Interpretation Comments Mean Corpuscular Volume (test code = 787-2) 87.4 81-99 [facility] HospitalMean Corpuscular Qjflckfbnk0686-32-51 08:49:00* Test Item Value Reference Range Interpretation Comments Mean Corpuscular Hemoglobin (test code = 785-6) 30.7 28-32 [facility] HospitalMean Corpuscular Hemoglobin Concent 2018-12-12 08:49:00* Test Item Value Reference Range Interpretation Comments Mean Corpuscular Hemoglobin Concent (test code = 786-4) 35.2 31-35 H [facility] HospitalRed Cell Distribution Qwcoe2657-10-16 08:49:00* Test Item Value Reference Range Interpretation Comments Red Cell Distribution Width (test code = 19421-4) 13.4 11.7 -14.4 [facility] HospitalPlatelet Izhdh1132-39-89 08:49:00* Test Item Value Reference Range Interpretation Comments Platelet Count (test code = 777-3) 289 140-360 [facility] HospitalNeutrophils (%) (Auto)2018-12-12 08:49:00 * Test Item Value Reference Range Interpretation Comments Neutrophils (%) (Auto) (test code = 24101-8) 58.6 38.7-80.0 [facility] HospitalLymphocytes (%) (Auto)2018-12-12 08:49:00 * Test Item Value Reference Range Interpretation Comments Lymphocytes (%) (Auto) (test code = 736-9) 32.5 18.0-39.1 [facility] HospitalMonocytes (%) (Auto)2018-12-12 08:49:00* Test Item Value Reference Range Interpretation Comments Monocytes (%) (Auto) (test code = 5905-5) 6.4 4.4-11.3 [facility] HospitalEosinophils (%) (Auto)2018-12-12 08:49:00 * Test Item Value Reference Range Interpretation Comments Eosinophils (%) (Auto) (test code = 713-8) 1.9 0.0-6.0 [facility] HospitalBasophils (%) (Auto)2018-12-12 08:49:00* Test Item Value Reference Range Interpretation Comments Basophils (%) (Auto) (test code = 706-2) 0.3 0.0-1.0 [facility] HospitalIM GRANULOCYTES %2018-12-12 08:49:00* Test Item Value Reference Range Interpretation Comments IM GRANULOCYTES % (test code = IM GRANULOCYTES %) 0.3 0.0- 1.0 [facility] HospitalNeutrophils # (Auto)2018-12-12 08:49:00* Test Item Value Reference Range Interpretation Comments Neutrophils # (Auto) (test code = 751-8) 3.7 2.1-6.9 [facility] HospitalLymphocytes # (Auto)2018-12-12 08:49:00* Test Item Value Reference Range Interpretation Comments Lymphocytes # (Auto) (test code = 43066-8) 2.0 1.0-3.2 [facility] HospitalMonocytes # (Auto)2018-12-12 08:49:00* Test Item Value Reference Range Interpretation Comments Monocytes # (Auto) (test code = 742-7) 0.4 0.2-0.8 [facility] HospitalEosinophils # (Auto)2018-12-12 08:49:00* Test Item Value Reference Range Interpretation Comments Eosinophils # (Auto) (test code = 711-2) 0.1 0.0-0.4 [facility] HospitalBasophils # (Auto)2018-12-12 08:49:00* Test Item Value Reference Range Interpretation Comments Basophils # (Auto) (test code = 704-7) 0.0 0.0-0.1 [facility] HospitalAbsolute Immature Granulocyte (auto 2018-12-12 08:49:00* Test Item Value Reference Range Interpretation Comments Absolute Immature Granulocyte (auto (mayo t code = Absolute Immature Granulocyte (auto) 0.02 0-0.1 [facility]
--- NOTE | 2020-07-12 20:04 | Diagnostic Imaging Report ---
CT CERVICAL SPINE WO, CT BRAIN WO HISTORY: Trauma COMPARISON: None. TECHNIQUE: Axial noncontrast CT images were obtained through the head and cervical spine. Coronal and sagittal reconstructions obtained from the axial data. One or more of the following dose reduction techniques were used: Automated exposure control, adjustment of the mA and/or kV according to patient size, and/or utilization of iterative reconstruction technique. DISCUSSION: HEAD CT: Scalp/Skull: Right parietal scalp hematoma without calvarial fracture. Brain sulci: Appropriate for patient's age. Ventricles: Normal in size and configuration. No hydrocephalus. Extra-axial spaces: No masses or fluid collections. Carotid siphon calcifications are present. Parenchyma: No abnormal densities. No masses, hemorrhage, or large vascular territory acute infarct. Dural sinuses: No abnormal densities. Sellar/Suprasellar region: Intact. Skull base: Intact. Incidental findings: None. CERVICAL SPINE CT: Cervical lordosis is straightened. There is no significant scoliosis. No fractures, compression deformity, or destructive osseous lesions are seen. The craniocervical junction is intact. No gross spinal canal masses are seen. The paravertebral and paraspinal soft tissues are unremarkable. Degenerative changes: Mild to moderate multilevel spondylosis is most prominent at C5-C6. There is possible mild canal stenosis at C5-C6 due to posterior disc osteophyte complex. Minimal grade 1 anterolisthesis of C3 on C4, C4 on C5, and C7 on T1 are due to facet arthrosis Incidental findings: Enlarged left thyroid lobe slightly displaces the trachea towards the right. IMPRESSION: Head CT: No acute intracranial abnormalities. Cervical Spine CT: 1. No acute osseous abnormalities in the cervical spine. 2. Degenerative changes as described above. 3. Enlarged left thyroid lobe. Further evaluation with nonemergent thyroid ultrasound is recommended. Signed by: Dr. Davion Guillen M.D. on 07/12/2020 8:00 PM
[2020-07-12 20:19] VITALS: BP 128/72
== END 2020-07-12 20:32 | disposition home or self-care (01) ==
LOC: ER 19:21
DX: S01.01XA Laceration without foreign body of scalp, initial encounter (principal); V19.9XXA Pedal cyclist (driver) (passenger) injured in unspecified traffic accident, initial encounter; Y93.55 Activity, bike riding; Y92.488 Other paved roadways as the place of occurrence of the external cause; I10 Essential (primary) hypertension; E78.5 Hyperlipidemia, unspecified
CPT/HCPCS: 70450; 72125; 99283

== ENCOUNTER → 2022-07-02 | Outpatient (CLI) | payer MEDICARE | LOC: DX 10:07 | PROVIDERS: ATTEND Internal Medicine Gastroenterology | DX: Z86.010 Personal history of colon polyps (principal) | CPT/HCPCS: 74280 ==

== ENCOUNTER → 2023-01-13 | Day surgery (SDC) | payer MEDICARE ==
[2023-01-08 10:37] LABS: BASOPHILS % 0.3 % (0.0-1.0); EOSINOPHILS # (AUTO) 0.2 (0.0-0.4); EOSINOPHILS % 3.3 % (0.0-6.0); HEMATOCRIT 41.1 % (34.2-44.1); HEMOGLOBIN 13.3 g/dL (12.0-16.0); LYMPHOCYTES # (AUTO) 1.8 (1.0-3.2); LYMPHOCYTES % 28.7 % (18.0-39.1); MEAN CORPUSCULAR HEMOGLOBIN 30.1 pg (28-32); MEAN CORPUSCULAR HGB CONC 32.4 g/dL (31-35); MONOCYTES # (AUTO) 0.6 (0.2-0.8); MONOCYTES % 9.3 % (4.4-11.3); NEUTROPHILS # (AUTO) 3.7 (2.1-6.9); NEUTROPHILS % 58.2 % (38.7-80.0); PLATELET COUNT 310 x10e3/uL (140-360); RED BLOOD COUNT 4.42 x10e6/uL (3.6-5.1); RED CELL DISTRIBUTION WIDTH 12.8 % (11.7-14.4)
[2023-01-08 11:02] LABS: CALCIUM 9.6 mg/dL (8.4-10.2); CREATININE, SERUM 0.74 mg/dL (0.57-1.11)
[~2023-01-13] MED LIST changes: +ARMOUR THYROID60 MG PO; +BUPIVACAINE HCL 0.5% INJ 30 ML VIAL INJ ONE; +CEFAZOLIN SODIUM 2 GM ONE; +CEPHALEXIN500 MG PO; +DETROL LA4 MG PO; +DEXAMETHASONE SOD PHOS INJ 4 MG/ML SDV ONE; +FAMOTIDINE 20 MG/2 ML VIAL IV ONE; +FENTANYL CITRATE/PF 100MCG/2 ML INJ ONE; +GABAPENTIN300 MG PO; +GLYCOPYRROLATE INJ 0.2 MG/ML VIAL ONE; +HYDROCHLOROTHIA25 MG PO; +HYDROCODON-ACE1 EA12 PO; +IBUPROFEN400 MG PO; +LIDOCAINE HCL 2% LOCAL INJ 5 ML SDV VIAL INJ ONE; +LIPITOR10 MG PO; +LOSARTAN POTASS25 MG PO; +LUNESTA1 MG PO; +METOCLOPRAM5 MG/5 ML PO; +MIDAZOLAM HCL 2 MG/2 ML VIAL ONE; +ONDANSETRON HCL INJ 2MG/ML 2ML 2 MG/ML VIAL ONE; +OXYBUTYNIN CHLOR5 M1 PO; +PHENYLEPHRINE HCL 1% 10 MG/ML VIAL ONE; +POVIDONE IODINE 0.05% 0.05 % ML PO ONE; +PROPOFOL IV EMULSION 10 MG/ML 20 ML VIAL ONE; +SEVOFLURANE INHAL SOLN 250 ML PEN BTL ONE; +VENLAFAXINE HCL75 MG PO
[2023-01-13 11:55] VITALS: BP 112/58
== END | disposition home or self-care (01) ==
LOC: OR 07:43
PROVIDERS: ATTEND Podiatrist Foot & Ankle Surgery
DX: T84.84XA Pain due to internal orthopedic prosthetic devices, implants and grafts, initial encounter (principal); L97.821 Non-pressure chronic ulcer of other part of left lower leg limited to breakdown of skin; L03.115 Cellulitis of right lower limb; I10 Essential (primary) hypertension; K21.9 Gastro-esophageal reflux disease without esophagitis; E03.9 Hypothyroidism, unspecified; G89.29 Other chronic pain; Y83.8 Other surgical procedures as the cause of abnormal reaction of the patient, or of later complication, without mention of misadventure at the time of the procedure; Z01.810 Encounter for preprocedural cardiovascular examination; Z01.812 Encounter for preprocedural laboratory examination; Z01.818 Encounter for other preprocedural examination; Z79.899 Other long term (current) drug therapy
CPT/HCPCS: 20680; 36415; 71046; 76000; 80048; 85025; 87071; 87075; 87205; 88300; 93005; J1100; J2001; J2250; J2370; J2405; J2704; J3010; Q4150